=== PATIENT | male | born 1940 | race African-American/Black ===

== ENCOUNTER 2022-03-08 02:40 | Emergency (ER) | payer OTHER ==
[~2022-03-08] VITALS: Ht 182.9 cm; Wt 55.0 kg
[2022-03-08 04:24] VITALS: BP 117/65
== END 2022-03-08 06:15 | disposition home or self-care (01) ==
LOC: EDBD 02:40 → ER 02:43
DX: S93.402A Sprain of unspecified ligament of left ankle, initial encounter (principal); W18.39XA Other fall on same level, initial encounter; Y93.89 Activity, other specified; Y92.89 Other specified places as the place of occurrence of the external cause; Y99.8 Other external cause status
CPT/HCPCS: 73502; 73600; 93005

== ENCOUNTER 2022-10-20 17:37 | Emergency (ER) | payer OTHER ==
[~2022-10-20] VITALS: Ht 177.8 cm; Wt 65.0 kg
[2022-10-20 18:14] VITALS: BP 102/75
== END 2022-10-21 01:06 | disposition left against medical advice (07) ==
LOC: ER 17:43
DX: S91.101A Unspecified open wound of right great toe without damage to nail, initial encounter (principal); Z53.21 Procedure and treatment not carried out due to patient leaving prior to being seen by health care provider; X58.XXXA Exposure to other specified factors, initial encounter; Y93.89 Activity, other specified; Y92.89 Other specified places as the place of occurrence of the external cause; Y99.8 Other external cause status